=== PATIENT | male | born 1945 ===

== ENCOUNTER 2018-11-13 07:35 | Day surgery (SDC) | payer OTHER, MEDICARE ==
[~2018-11-13 07:35] MED LIST: (None)20 M1; ALBU.083IS INH; ALBU90OI INH; FURO20 PO; FURO80 PO; GABA400 PO; INSULANI SC; INSULANPEN SC; LEVEMIR FL100 UNIT/1 SC; LEVO750 PO; POTA10T PO; PRED10 PO; PRED5 PO
== END 2018-11-13 22:37 | disposition home or self-care (01) ==
LOC: WOUND 07:35
PROC: 0KBW0ZZ Excision of Left Foot Muscle, Open Approach (ICD-10-PCS; principal; 2018-11-13)
DX: E11.621 Type 2 diabetes mellitus with foot ulcer (principal); L97.522 Non-pressure chronic ulcer of other part of left foot with fat layer exposed
CPT/HCPCS: G0463

== ENCOUNTER 2018-11-20 08:45 | Day surgery (SDC) | payer OTHER, MEDICARE | END 2018-11-20 10:00 | disposition home or self-care (01) | LOC: WOUND 08:45 | DX: E11.621 Type 2 diabetes mellitus with foot ulcer (principal); L97.522 Non-pressure chronic ulcer of other part of left foot with fat layer exposed; L03.032 Cellulitis of left toe; E11.610 Type 2 diabetes mellitus with diabetic neuropathic arthropathy; G62.9 Polyneuropathy, unspecified; E11.22 Type 2 diabetes mellitus with diabetic chronic kidney disease; N18.3 Chronic kidney disease, stage 3 (moderate); G47.33 Obstructive sleep apnea (adult) (pediatric); Z91.041 Radiographic dye allergy status; Z88.8 Allergy status to other drugs, medicaments and biological substances ==

== ENCOUNTER 2018-11-28 00:11 | Day surgery (SDC) | payer OTHER, MEDICARE | END 2018-11-28 22:41 | disposition home or self-care (01) | LOC: WOUND 00:11 | DX: E11.621 Type 2 diabetes mellitus with foot ulcer (principal); L97.529 Non-pressure chronic ulcer of other part of left foot with unspecified severity; L03.032 Cellulitis of left toe; E11.610 Type 2 diabetes mellitus with diabetic neuropathic arthropathy; M20.40 Other hammer toe(s) (acquired), unspecified foot; J44.9 Chronic obstructive pulmonary disease, unspecified; E11.42 Type 2 diabetes mellitus with diabetic polyneuropathy; R60.0 Localized edema; E11.22 Type 2 diabetes mellitus with diabetic chronic kidney disease; N18.3 Chronic kidney disease, stage 3 (moderate); G47.33 Obstructive sleep apnea (adult) (pediatric) | CPT/HCPCS: G0463 ==

== ENCOUNTER 2018-12-05 07:50 | Day surgery (SDC) | payer OTHER, MEDICARE | END 2018-12-05 22:51 | disposition home or self-care (01) | LOC: WOUND 07:50 | DX: E11.621 Type 2 diabetes mellitus with foot ulcer (principal); L97.522 Non-pressure chronic ulcer of other part of left foot with fat layer exposed; L03.032 Cellulitis of left toe; N18.3 Chronic kidney disease, stage 3 (moderate); G47.33 Obstructive sleep apnea (adult) (pediatric); Z79.4 Long term (current) use of insulin ==

== ENCOUNTER 2018-12-12 08:17 | Day surgery (SDC) | payer OTHER, MEDICARE | END 2018-12-12 23:09 | disposition home or self-care (01) | LOC: WOUND 08:17 | DX: E11.621 Type 2 diabetes mellitus with foot ulcer (principal); L97.529 Non-pressure chronic ulcer of other part of left foot with unspecified severity; L03.032 Cellulitis of left toe | CPT/HCPCS: G0463 ==

== ENCOUNTER 2018-12-18 12:38 | Day surgery (SDC) | payer OTHER, MEDICARE | END 2018-12-18 22:41 | disposition home or self-care (01) | LOC: WOUND 12:38 | DX: E11.621 Type 2 diabetes mellitus with foot ulcer (principal); L03.032 Cellulitis of left toe; L97.522 Non-pressure chronic ulcer of other part of left foot with fat layer exposed; Z79.4 Long term (current) use of insulin | CPT/HCPCS: G0463 ==

== ENCOUNTER 2019-01-02 08:50 | Day surgery (SDC) | payer OTHER | END 2019-01-02 14:20 | disposition home or self-care (01) | LOC: WOUND 08:50 | DX: E11.621 Type 2 diabetes mellitus with foot ulcer (principal); M86.672 Other chronic osteomyelitis, left ankle and foot; L03.032 Cellulitis of left toe; N18.3 Chronic kidney disease, stage 3 (moderate); G47.33 Obstructive sleep apnea (adult) (pediatric); Z79.4 Long term (current) use of insulin | CPT/HCPCS: G0463 ==

== ENCOUNTER 2019-01-16 00:18 | Day surgery (SDC) | payer OTHER | END 2019-01-16 23:02 | disposition home or self-care (01) | LOC: WOUND 00:18 | DX: E11.621 Type 2 diabetes mellitus with foot ulcer (principal); L97.529 Non-pressure chronic ulcer of other part of left foot with unspecified severity; E11.69 Type 2 diabetes mellitus with other specified complication; M86.672 Other chronic osteomyelitis, left ankle and foot; L03.032 Cellulitis of left toe; E11.610 Type 2 diabetes mellitus with diabetic neuropathic arthropathy; J44.9 Chronic obstructive pulmonary disease, unspecified; G47.33 Obstructive sleep apnea (adult) (pediatric); E11.22 Type 2 diabetes mellitus with diabetic chronic kidney disease; N18.3 Chronic kidney disease, stage 3 (moderate); M10.9 Gout, unspecified; M19.90 Unspecified osteoarthritis, unspecified site | CPT/HCPCS: G0463 ==

== ENCOUNTER 2019-01-23 00:50 | Day surgery (SDC) | payer OTHER | END 2019-01-23 22:37 | disposition home or self-care (01) | LOC: WOUND 00:50 | DX: E11.621 Type 2 diabetes mellitus with foot ulcer (principal); L97.529 Non-pressure chronic ulcer of other part of left foot with unspecified severity; M86.672 Other chronic osteomyelitis, left ankle and foot; E11.42 Type 2 diabetes mellitus with diabetic polyneuropathy; E11.22 Type 2 diabetes mellitus with diabetic chronic kidney disease; N18.3 Chronic kidney disease, stage 3 (moderate); J44.9 Chronic obstructive pulmonary disease, unspecified; G47.33 Obstructive sleep apnea (adult) (pediatric) | CPT/HCPCS: G0463 ==

== ENCOUNTER 2019-01-30 00:05 | Day surgery (SDC) | payer OTHER, MEDICARE | END 2019-01-30 22:41 | disposition home or self-care (01) | LOC: WOUND 00:05 | DX: E11.621 Type 2 diabetes mellitus with foot ulcer (principal); M86.172 Other acute osteomyelitis, left ankle and foot; L97.529 Non-pressure chronic ulcer of other part of left foot with unspecified severity; E11.42 Type 2 diabetes mellitus with diabetic polyneuropathy; E11.22 Type 2 diabetes mellitus with diabetic chronic kidney disease; N18.3 Chronic kidney disease, stage 3 (moderate); J44.9 Chronic obstructive pulmonary disease, unspecified; G47.33 Obstructive sleep apnea (adult) (pediatric) | CPT/HCPCS: G0463 ==

== ENCOUNTER 2019-06-13 08:07 | Day surgery (SDC) | payer OTHER, MEDICARE ==
[~2019-06-13] VITALS: Ht 185.4 cm; Wt 120.2 kg
[~2019-06-13 08:07] MED LIST changes: +ALBU90OI61; +ALLO300 PO; +COLCHICINE0.6 MG PO; +Flovent 44 mc10.6 GM INH; +Garlic1 EAC1 PO; +Humalog100 UNIT/1 SC; +METO2.5 PO; +TORSE20 PO
[2019-06-13] MEDS ORDERED: ATOR10 (08:58)
== END 2019-06-13 10:35 | disposition home or self-care (01) ==
LOC: ORSCSDS 08:07
PROVIDERS: Surgery
PROC: 0DBP8ZX Excision of Rectum, Via Natural or Artificial Opening Endoscopic, Diagnostic (ICD-10-PCS; principal; 2019-06-13 09:30)
PROC: 0DBK8ZX Excision of Ascending Colon, Via Natural or Artificial Opening Endoscopic, Diagnostic (ICD-10-PCS; principal; 2019-06-13 09:30)
PROC: 0DBM8ZX Excision of Descending Colon, Via Natural or Artificial Opening Endoscopic, Diagnostic (ICD-10-PCS; principal; 2019-06-13 09:30)
DX: R19.5 Other fecal abnormalities (principal); Z86.010 Personal history of colon polyps; D12.2 Benign neoplasm of ascending colon; D12.4 Benign neoplasm of descending colon; K62.1 Rectal polyp; K57.30 Diverticulosis of large intestine without perforation or abscess without bleeding; K64.8 Other hemorrhoids; E11.40 Type 2 diabetes mellitus with diabetic neuropathy, unspecified; E11.22 Type 2 diabetes mellitus with diabetic chronic kidney disease; N18.3 Chronic kidney disease, stage 3 (moderate); Z79.4 Long term (current) use of insulin; G47.33 Obstructive sleep apnea (adult) (pediatric); J44.9 Chronic obstructive pulmonary disease, unspecified; Z87.891 Personal history of nicotine dependence; Z86.73 Personal history of transient ischemic attack (TIA), and cerebral infarction without residual deficits; E66.9 Obesity, unspecified; Z68.35 Body mass index [BMI] 35.0-35.9, adult; Z79.899 Other long term (current) drug therapy
CPT/HCPCS: 82947; 88305; J2704; J7120